=== PATIENT | male | born 1990 | race Caucasian/White ===

== ENCOUNTER 2022-06-18 17:25 | Emergency (ER) | payer SELFPAY ==
[2022-06-18] MEDS ORDERED: Orphenadrine 100 MG Tab.ER PO ONE (17:53)
[2022-06-18] MEDS ORDERED: Ketorolac 30 MG/ML SDV IM ONE (17:53)
[2022-06-18] MEDS ORDERED: HYDROmorphone 1 MG/ML Syringe IM ONE (18:39)
[2022-06-18 19:16] VITALS: BP 138/91; PULSE 72
[2022-06-18] MEDS ORDERED: Dexamethasone 10 MG/ML SDV IM ONE (19:47)
[2022-06-18] MEDS ORDERED: Cyclobenzaprine 10 MG Tab PO ONE (19:47)
== END 2022-06-18 19:30 | disposition home or self-care (01) ==
LOC: JD.ED 17:25
DX: M54.41 Lumbago with sciatica, right side (principal); M54.42 Lumbago with sciatica, left side
CPT/HCPCS: 96372; 99283; A9270; J1100; J1170; J1885